=== PATIENT | female | born 1945 | race African-American/Black ===

== ENCOUNTER 2017-03-10 07:07 | Outpatient (CLI) | payer MEDICARE | END 2017-03-10 07:08 | disposition home or self-care (01) | LOC: BICMAMMO 07:07 | PROVIDERS: ATTEND Obstetrics & Gynecology | DX: Z12.31 Encounter for screening mammogram for malignant neoplasm of breast (principal) | CPT/HCPCS: 77063; G0202; 77067 ==

== ENCOUNTER 2018-03-21 09:58 | Outpatient (CLI) | payer MEDICARE | END 2018-03-21 09:59 | disposition home or self-care (01) | LOC: BICMAMMO 09:58 | PROVIDERS: ATTEND Internal Medicine | DX: Z12.31 Encounter for screening mammogram for malignant neoplasm of breast (principal); Z80.3 Family history of malignant neoplasm of breast; N63.10 Unspecified lump in the right breast, unspecified quadrant; N63.20 Unspecified lump in the left breast, unspecified quadrant; R92.1 Mammographic calcification found on diagnostic imaging of breast; N64.89 Other specified disorders of breast | CPT/HCPCS: 77063; 77067 ==

== ENCOUNTER 2018-03-23 13:20 | Outpatient (CLI) | payer MEDICARE ==
--- NOTE | 2018-03-23 15:27 | ULT ---
ULTRASOUND LEFT BREAST: Indications: Ultrasound performed to assess the nodular density on mammography. FINDINGS: At the 12 o'clock left breast there is an oblong shaped hypoechoic nodule measuring 4-5 mm. There chelsea ears to be an echogenic hilum with flow seen in this hilum. A lymph node is suspected. Recommend six month follow up left breast mammogram and ultrasound. IMPRESSION: BIRADS 3 - probably benign findings. Recommend six month follow up left breast mammogram and ultrasou nd. POS: RANI
== END 2018-03-23 13:21 | disposition home or self-care (01) ==
LOC: BICMAMMO 13:20
PROVIDERS: ATTEND Internal Medicine
DX: R92.2 Inconclusive mammogram (principal); N63.20 Unspecified lump in the left breast, unspecified quadrant; Z80.3 Family history of malignant neoplasm of breast
CPT/HCPCS: 76642; 77065; G0279

== ENCOUNTER 2018-09-25 11:07 | Outpatient (CLI) | payer MEDICARE ==
--- NOTE | 2018-09-25 12:01 | MMO ---
Left Breast MAMMO Unilat Diag DDI LT+DENY. CLINICAL HISTORY: Patient is 73 years old and is seen for diagnostic exam. The patient has the following family history of breast cancer: sister. The patient has no personal history of cancer. VIEWS: The views performed were: left craniocaudal with tomosynthesis; left mediolateral oblique with tomosynthesis; and left mediolateral with tomosynthesis. FILMS COMPARED: The present examination has been compared to prior imaging studies performed at [facility] on 03/10/2017, 03/21/2018, 03/23/2018 and 09/25/2018. MAMMOGRAM FINDINGS: There are scattered fibroglandular densities. Finding 1: There are multiple stable masses with circumscribed margins seen in the left breast. Finding 2: There are stable benign appearing calcifications seen in the left breast. IMPRESSION: FINDING 1: STABLE MASSES IN THE LEFT BREAST ARE PROBABLY BENIGN. FOLLOW-UP IN 6 MONTHS IS RECOMMENDED. FINDING 2: STABLE CALCIFICATIONS IN THE LEFT BREAST ARE BENIGN. THE RESULTS OF THIS EXAM WERE SENT TO THE PATIENT. ACR BI-RADS Category 3 - Probably benign finding - short interval follow-up suggested. [facility] will notify the patient of the need for additional imaging services. MAMMOGRAPHY NOTE: 1. A negative mammogram report should not delay a biopsy if a dominant of clinically suspicious mass is present. 2. Approximately 10% to 15% of breast cancers are not detected by mammography. 3. Adenosis and dense breasts may obscure an underlying neoplasm. Reported by: NHUNG BOWLES MD Electonically Signed: [id number]
--- NOTE | 2018-09-25 12:47 | ULT ---
LIMITED LEFT BREAST ULTRASOUND: HISTORY: Adenoma. The patient returns for six month follow-up left unilateral diagnostic mammogram and left b reast ultrasound with attention to an area at 12 o'clock. FINDINGS: There is a circumscribed, hypoechoic focus, measuring 0.3 x 0.4 x 0.5 cm, in the left breast, 12 o'cl ock, 4 cm from the nipple, stable from the prior study, evidence for a probable small lymph node or s eptated cyst. Left unilateral diagnostic mammogram is stable. IMPRESSION: Stable benign findings in the left breast. The patient is due for a bilateral mammogram in six month s, March 2019. I feel this mammogram can be a screening mammogram since mammographic and ultrasoun d findings are stable. POS: OFF
== END 2018-09-25 11:08 | disposition home or self-care (01) ==
LOC: BICULT 11:07
PROVIDERS: ATTEND Internal Medicine
DX: D24.2 Benign neoplasm of left breast (principal); N63.20 Unspecified lump in the left breast, unspecified quadrant; R92.1 Mammographic calcification found on diagnostic imaging of breast; Z80.3 Family history of malignant neoplasm of breast
CPT/HCPCS: 76642; 77065; G0279

== ENCOUNTER 2019-04-10 10:28 | Outpatient (CLI) | payer MEDICARE ==
--- NOTE | 2019-04-10 11:36 | MMO ---
Bilateral MAMMO Bilat Screen DDI+DENY. CLINICAL HISTORY: Patient is 73 years old and is seen for screening. The patient has the following family history of breast cancer: sister. The patient has no personal history of cancer. VIEWS: The views performed were: bilateral craniocaudal with tomosynthesis and bilateral mediolateral oblique with tomosynthesis. FILMS COMPARED: The present examination has been compared to prior imaging studies performed at [facility] on 03/21/2018, 03/23/2018 and 09/25/2018. This study has been interpreted with the assistance of computer-aided detection. MAMMOGRAM FINDINGS: There are scattered fibroglandular densities. Finding 1: There is a new equal density, lobular mass measuring 14 millimeters with circumscribed margins seen in the inner region of the right breast. Finding 2: There are stable benign appearing calcifications seen in both breasts. IMPRESSION: FINDING 1: NEW MASS IN THE RIGHT BREAST REQUIRES ADDITIONAL EVALUATION. AN ULTRASOUND EXAM IS RECOMMENDED. THE RESULTS OF THIS EXAM WERE SENT TO THE PATIENT. ACR BI-RADS Category 0 - Incomplete: Need additional imaging evaluation. [facility] will notify the patient of the need for additional imaging services. MAMMOGRAPHY NOTE: 1. A negative mammogram report should not delay a biopsy if a dominant of clinically suspicious mass is present. 2. Approximately 10% to 15% of breast cancers are not detected by mammography. 3. Adenosis and dense breasts may obscure an underlying neoplasm. Reported by: RUBÉN PIZANO MD Electonically Signed: [id number]
== END 2019-04-10 10:29 | disposition home or self-care (01) ==
LOC: BICMAMMO 10:28
PROVIDERS: ATTEND Obstetrics & Gynecology
DX: Z12.31 Encounter for screening mammogram for malignant neoplasm of breast (principal); Z80.3 Family history of malignant neoplasm of breast; N63.10 Unspecified lump in the right breast, unspecified quadrant
CPT/HCPCS: 77063; 77067

== ENCOUNTER 2019-04-23 10:28 | Outpatient (CLI) | payer MEDICARE ==
--- NOTE | 2019-04-23 12:25 | ULT ---
LIMITED RIGHT BREAST ULTRASOUND: DATE: 04/23/2019. PROVIDED CLINICAL HISTORY: Abnormal mammogram. FINDINGS: Limited sonographic interrogation is performed of the right breast in the region of mammographic conc ruby. There are multiple adjacent simple cysts in aggregate measuring about 1.4 cm at the 2 o'clock p osition of the right breast. No concerning sonographic findings are evident. IMPRESSION: BIRADS category 2 - benign findings. Return to annual screening mammography recommended. POS: OFF
== END 2019-04-23 10:29 | disposition home or self-care (01) ==
LOC: BICULT 10:28
PROVIDERS: ATTEND Obstetrics & Gynecology
DX: N63.10 Unspecified lump in the right breast, unspecified quadrant (principal)

== ENCOUNTER 2020-04-10 10:00 | Outpatient (CLI) | payer MEDICARE | END 2020-04-10 10:01 | disposition home or self-care (01) | LOC: BICMAMMO 10:00 | PROVIDERS: ATTEND Obstetrics & Gynecology | DX: Z12.31 Encounter for screening mammogram for malignant neoplasm of breast (principal); Z80.3 Family history of malignant neoplasm of breast | CPT/HCPCS: 77063; 77067 ==

== ENCOUNTER 2021-04-12 08:42 | Outpatient (CLI) | payer MEDICARE | END 2021-04-12 08:43 | disposition home or self-care (01) | LOC: BICMAMMO 08:42 | PROVIDERS: ATTEND Obstetrics & Gynecology | DX: Z12.31 Encounter for screening mammogram for malignant neoplasm of breast (principal); Z80.3 Family history of malignant neoplasm of breast | CPT/HCPCS: 77063; 77067 ==

== ENCOUNTER 2021-06-15 10:37 | Outpatient (CLI) | payer MEDICARE | END 2021-06-15 10:38 | disposition home or self-care (01) | LOC: BICMAMMO 10:37 | PROVIDERS: ATTEND Internal Medicine | DX: Z13.820 Encounter for screening for osteoporosis (principal) | CPT/HCPCS: 77080 ==

== ENCOUNTER 2022-04-19 10:12 | Outpatient (CLI) | payer MEDICARE | END 2022-04-19 10:13 | disposition home or self-care (01) | LOC: BICMAMMO 10:12 | PROVIDERS: ATTEND Obstetrics & Gynecology | DX: Z12.31 Encounter for screening mammogram for malignant neoplasm of breast (principal); Z80.3 Family history of malignant neoplasm of breast | CPT/HCPCS: 77063; 77067 ==

== ENCOUNTER 2024-04-23 09:02 | Outpatient (CLI) | payer MEDICARE | END 2024-04-23 09:03 | disposition home or self-care (01) | LOC: BICMAMMO 09:02 | PROVIDERS: ATTEND Obstetrics & Gynecology | DX: Z12.31 Encounter for screening mammogram for malignant neoplasm of breast (principal); Z80.3 Family history of malignant neoplasm of breast | CPT/HCPCS: 77063; 77067 ==